=== PATIENT | female | born 1985 | race Caucasian/White ===

== ENCOUNTER 2022-03-26 12:49 | Emergency (ER) | payer OTHER ==
[2022-03-26] MEDS ORDERED: Sodium Chloride 0.9% 10 ML Syringe FLUSH PRN (13:19)
[2022-03-26] MEDS ORDERED: Ondansetron 4 MG/2 ML SDV IVPUSH ONE (13:20)
[2022-03-26] MEDS ORDERED: HYDROmorphone 0.5 MG/0.5 ML Syringe IVPUSH ONE (13:20)
[2022-03-26] MEDS ORDERED: Sodium Chloride 0.9% 1,000 ML IV STA (13:20)
[2022-03-26] MEDS ORDERED: Dicyclomine 20 MG/2 ML SDV IM ONE (14:29)
[2022-03-26] MEDS ORDERED: Magnesium Sulfate/Water 2 GM/50 ML BAG IV ONE (15:15)
== END 2022-03-26 17:50 | disposition home or self-care (01) ==
LOC: JD.ED 12:49
DX: A08.4 Viral intestinal infection, unspecified (principal)
CPT/HCPCS: 36415; 80053; 81001; 83690; 83735; 84703; 85025; 86140; 96361; 96365; 96366; 96372; 96375; 99284; J0500; J1170; J2405; J3475; J3490; J7030; 99282